=== PATIENT | male | born 1980 | race Caucasian/White ===

== ENCOUNTER 2020-08-09 20:47 | Emergency (ER) | payer MEDICAID, MEDICARE ==
[~2020-08-09] VITALS: Ht 172.7 cm; Wt 67.0 kg
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
[2020-08-09 21:31] LABS: BASOPHILS % (AUTO) 1 % (0-1); EOSINOPHILS % (AUTO) 1 % (1-7); LYMPHOCYTES % (AUTO) 20 % (22-44); MEAN CORPUSCULAR HGB CONC 34.2 g/dL (33.2-36.2); MEAN PLATELET VOLUME 8.9 fL (7.4-10.4); MONOCYTES % (AUTO) 6 % (2-9); NEUTROPHILS % (AUTO) 73 % (42-75); PLATELET COUNT 204 x10^3/uL (130-400); RED BLOOD COUNT 5.04 x10^6/uL (4.38-5.82); RED CELL DISTRIBUTION WIDTH 12.9 % (9.4-14.8)
[2020-08-09 21:37] LABS: MD NO
[2020-08-09 21:42] LABS: ALANINE AMINOTRANSFERASE 33 U/L (12-78); ALBUMIN 4.1 g/dL (3.4-5.0); ANION GAP 6 mmol/L (5-15); CALCIUM 8.7 mg/dL (8.5-10.1); CHLORIDE 103 mmol/L (98-107); CREATININE 1.24 mg/dL (0.7-1.3); SALICYLATE LEVEL < 1.7 mg/dL (2.8-20.0)
[2020-08-09 21:53] LABS: ALKALINE PHOSPHATASE 152 U/L (45-117); BILIRUBIN,TOTAL 0.5 mg/dL (0.2-1.0); TOTAL PROTEIN 7.5 g/dL (6.4-8.2)
--- NOTE | 2020-08-09 21:53 | NUR ---
PT MOVED FROM ED ROOM 4 TO ED ROOM 1. SAFETY HDZ DOWN AND SITTER IN VIEW. PT DENIES ANY NEEDS AT THIS TIME.
[2020-08-09] MEDS ORDERED: INSULIN REGULAR 100 UNITS/ML, 3ML VIAL IVPush ONE (22:00)
[2020-08-09] MEDS ORDERED: SODIUM CHLORIDE 0.9% 1,000ML IVBOLUS ONE ×2 (22:00)
--- NOTE | 2020-08-09 22:13 | NUR ---
PT UP TO BATHROOM WITH STEADY GAIT. PT PROVIDED URINE SAMPLE, URINE WALKED TO LAB. PIV STARTED PER ERP ORDER, PT MEDICATED PER EMAR. NO OTHER NEEDS AT THIS TIME.
[2020-08-09] MEDS ORDERED: INSULIN SINGLE DOSE, ER ONE (22:17)
[2020-08-09 22:30] LABS: AMPHETAMINE SCREEN, URINE Positive (Negative); BARBITURATE SCREEN, URINE Negative (Negative); BENZODIAZEPINE SCREEN, URINE Negative (Negative); CANNABINOID SCREEN, URINE Negative (Negative); COCAINE SCREEN, URINE Negative (Negative); METHADONE SCREEN, URINE Negative (Negative); OPIATE SCREEN, URINE Negative (Negative)
[2020-08-09 23:34] VITALS: BP 127/90
[2020-08-09] MEDS ORDERED: metFORMIN 500 MG TABLET PO ONE (23:41)
[2020-08-09] MEDS ORDERED: metFORMIN 500 MG TABLET ONE (23:43)
--- NOTE | 2020-08-10 00:12 | NUR ---
[facility] RN AT BEDSIDE FOR EVAL OF PT
[2020-08-11] MEDS ORDERED: METF-734 PO (11:39)
== END 2020-08-10 02:04 ==
LOC: ED 21:17
DX: R45.851 Suicidal ideations (principal); Z20.822 Contact with and (suspected) exposure to COVID-19; R44.1 Visual hallucinations; F15.151 Other stimulant abuse with stimulant-induced psychotic disorder with hallucinations; F10.10 Alcohol abuse, uncomplicated; E11.9 Type 2 diabetes mellitus without complications; Z72.9 Problem related to lifestyle, unspecified; Y90.0 Blood alcohol level of less than 20 mg/100 ml
CPT/HCPCS: 36415; 80053; 80299; 80307; 80320; 82962; 84443; 85025; 87426; 96361; 96374; 99285; J1815; J7030; 80329; G0480

== ENCOUNTER 2020-08-10 01:17 | Inpatient (IN) | payer MEDICARE ==
[~2020-08-10] VITALS: Ht 167.6 cm; Wt 76.6 kg
[2020-08-10] MEDS ORDERED: POLYETHYLENE GLYCOL 17 GM PACKET PO PRN (01:30)
[2020-08-10] MEDS ORDERED: ONDANSETRON ODT 4 MG PO PRN (01:30)
[2020-08-10] MEDS ORDERED: DOCUSATE 100 MG CAPSULE PO PRN (01:30)
[2020-08-10] MEDS ORDERED: BISACODYL 10 MG SUPP PR PRN (01:30)
[2020-08-10 02:43] LABS: CHOL/HDL RATIO 3.7; FREE T4 (FREE THYROXINE) 1.03 ng/dL (0.76-1.46)
[2020-08-10 03:02] VITALS: BP 126/90
[2020-08-10 03:39] LABS: MICROSCOPIC NOT IND
[2020-08-10 07:30] VITALS: BP 114/75
[2020-08-10] MEDS ORDERED: ZIPRASIDONE 20MG CAPSULE PO PRN (13:30)
[2020-08-10] MEDS: metFORMIN 500 MG TABLET PO SCH (17:00)
[2020-08-10 18:19] VITALS: BP 115/75
[2020-08-11 07:49] VITALS: BP 100/65
[2020-08-11] MEDS: metFORMIN 500 MG TABLET PO SCH ×2 (08:57→17:10)
[2020-08-11] MEDS ORDERED: METF-734 PO (11:39)
[2020-08-11 19:22] VITALS: BP 110/74
[2020-08-12 07:53] VITALS: BP 108/76
[2020-08-12] MEDS: metFORMIN 500 MG TABLET PO SCH ×2 (08:00→19:58)
[2020-08-12 19:41] VITALS: BP 102/70
[2020-08-12] MEDS: ZIPRASIDONE 20MG CAPSULE PO SCH (20:21)
[2020-08-13 07:58] VITALS: BP 103/71
[2020-08-13] MEDS: metFORMIN 500 MG TABLET PO SCH ×2 (08:00→17:00)
[2020-08-13 20:00] VITALS: BP 122/84
[2020-08-13] MEDS: ZIPRASIDONE 20MG CAPSULE PO SCH (20:10)
[2020-08-13] MEDS: ACETAMINOPHEN 325 MG TABLET PO PRN (20:13)
[2020-08-14 07:41] VITALS: BP 106/75
[2020-08-14] MEDS: metFORMIN 500 MG TABLET PO SCH ×2 (08:00→17:00)
[2020-08-14 19:50] VITALS: BP 119/87
[2020-08-14] MEDS: ZIPRASIDONE 20MG CAPSULE PO SCH (20:31)
[2020-08-14] MEDS: ACETAMINOPHEN 325 MG TABLET PO PRN (20:31)
[2020-08-15 07:21] VITALS: BP 120/84
[2020-08-15] MEDS: metFORMIN 500 MG TABLET PO SCH ×2 (08:00→16:46)
[2020-08-15] MEDS: ACETAMINOPHEN 325 MG TABLET PO PRN ×2 (17:43→23:31)
[2020-08-15 19:30] VITALS: BP 125/80
[2020-08-15] MEDS: ZIPRASIDONE 20MG CAPSULE PO SCH (20:02)
[2020-08-16 07:54] VITALS: BP 107/73
[2020-08-16] MEDS: metFORMIN 500 MG TABLET PO SCH ×2 (08:00→16:09)
[2020-08-16] MEDS: ACETAMINOPHEN 325 MG TABLET PO PRN ×2 (17:44→22:34)
[2020-08-16 19:46] VITALS: BP 117/99
[2020-08-16] MEDS: ZIPRASIDONE 20MG CAPSULE PO SCH (20:12)
[2020-08-16] MEDS: NYSTATIN CRM 15GM TP SCH (22:34)
[2020-08-17 07:37] VITALS: BP 122/74
[2020-08-17] MEDS: metFORMIN 500 MG TABLET PO SCH ×2 (08:28→17:53)
[2020-08-17] MEDS: NYSTATIN CRM 15GM TP SCH ×2 (10:00→20:42)
[2020-08-17 18:59] VITALS: BP 122/87
[2020-08-17] MEDS: ACETAMINOPHEN 325 MG TABLET PO PRN (20:41)
[2020-08-17] MEDS: ZIPRASIDONE 20MG CAPSULE PO SCH (20:42)
[2020-08-18 07:54] VITALS: BP 105/72
[2020-08-18] MEDS: NYSTATIN CRM 15GM TP SCH (09:19)
[2020-08-18] MEDS: metFORMIN 500 MG TABLET PO SCH (09:19)
[2020-08-18] MEDS ORDERED: NYST15CR TP (13:25)
[2020-08-18] MEDS ORDERED: ZIPR20CA2 PO ×2 (13:25)
[2020-08-18] MEDS ORDERED: METF500T PO (13:25)
== END 2020-08-18 13:45 | disposition home or self-care (01) | DRG 885 ==
LOC: 3E 02:09
PROVIDERS: ADMIT Psychiatry & Neurology Psychosomatic Medicine; ATTEND Psychiatry & Neurology Psychosomatic Medicine
DX: F29 Unspecified psychosis not due to a substance or known physiological condition (principal); F25.0 Schizoaffective disorder, bipolar type; F12.10 Cannabis abuse, uncomplicated; E11.9 Type 2 diabetes mellitus without complications; F22 Delusional disorders; Z79.84 Long term (current) use of oral hypoglycemic drugs; Z79.899 Other long term (current) drug therapy
CPT/HCPCS: 36415; 71045; 80061; 81003; 82607; 82962; 83036; 84439; 84443; 93005